=== PATIENT | female | born 1990 | race Caucasian/White ===

== ENCOUNTER 2023-06-03 09:22 | Outpatient (CLI) | payer OTHER, SELFPAY | END 2023-06-03 09:23 | disposition home or self-care (01) | LOC: FRMREF 09:23 | PROVIDERS: PCP Family Medicine; Visit Provider Family Medicine | DX: Z00.00 Encounter for general adult medical examination without abnormal findings (principal); Z83.3 Family history of diabetes mellitus | CPT/HCPCS: 80053 ==

== ENCOUNTER 2023-07-08 14:45 | Outpatient (RCR) | payer OTHER, SELFPAY | END 2023-08-12 11:09 | disposition home or self-care (01) | PROVIDERS: PCP Family Medicine; Visit Provider Family Medicine | DX: M25.561 Pain in right knee (principal); G89.29 Other chronic pain; Z51.89 Encounter for other specified aftercare | CPT/HCPCS: 97110; 97140; 97161 ==

== ENCOUNTER 2024-09-14 18:23 | Outpatient (CLI) | payer OTHER, SELFPAY | END 2024-09-14 18:24 | disposition home or self-care (01) | PROVIDERS: PCP Family Medicine; Visit Provider Advanced Practice Midwife | DX: Z34.91 Encounter for supervision of normal pregnancy, unspecified, first trimester (principal); Z3A.09 9 weeks gestation of pregnancy | CPT/HCPCS: 76817; 82565; 82570; 84156; 84450; 84460; 84520; 84550; 86592; 86703; 86704; 86706; 86762; 86787; 86803; 86850; 86900; 86901; 87086; 87340 ==

== ENCOUNTER 2024-09-20 13:11 | Outpatient (CLI) | payer OTHER, SELFPAY | END 2024-09-20 13:12 | disposition home or self-care (01) | LOC: NFLDREF 13:12 | PROVIDERS: PCP Family Medicine; Visit Provider Advanced Practice Midwife | DX: O09.299 Supervision of pregnancy with other poor reproductive or obstetric history, unspecified trimester (principal) | CPT/HCPCS: 82570; 84156 ==

== ENCOUNTER 2024-10-11 16:58 | Outpatient (CLI) | payer OTHER, SELFPAY | END 2024-10-11 16:59 | disposition home or self-care (01) | PROVIDERS: PCP Family Medicine; Visit Provider Obstetrics & Gynecology | DX: Z34.91 Encounter for supervision of normal pregnancy, unspecified, first trimester (principal); Z3A.12 12 weeks gestation of pregnancy | CPT/HCPCS: 80076; 82565; 82570; 84156; 84520 ==

== ENCOUNTER 2024-12-09 13:46 | Outpatient (CLI) | payer OTHER, SELFPAY | END 2024-12-09 13:47 | disposition home or self-care (01) | LOC: US 13:47 | PROVIDERS: PCP Family Medicine; Visit Provider Obstetrics & Gynecology | DX: O09.522 Supervision of elderly multigravida, second trimester (principal); O10.912 Unspecified pre-existing hypertension complicating pregnancy, second trimester; Z3A.20 20 weeks gestation of pregnancy | CPT/HCPCS: 76811; 82570; 84156; 87086 ==

== ENCOUNTER 2025-01-05 14:47 | Outpatient (CLI) | payer OTHER, SELFPAY | END 2025-01-05 14:48 | disposition home or self-care (01) | LOC: US 14:48 | PROVIDERS: PCP Family Medicine; Visit Provider Obstetrics & Gynecology | DX: O09.522 Supervision of elderly multigravida, second trimester (principal); O10.912 Unspecified pre-existing hypertension complicating pregnancy, second trimester; O14.92 Unspecified pre-eclampsia, second trimester; Z3A.24 24 weeks gestation of pregnancy | CPT/HCPCS: 76816 ==

== ENCOUNTER 2025-02-01 13:49 | Outpatient (CLI) | payer OTHER, SELFPAY | END 2025-02-01 13:50 | disposition home or self-care (01) | LOC: NFLDREF 02-04 02:43 | PROVIDERS: PCP Family Medicine; Referring Provider Family Medicine; Visit Provider Obstetrics & Gynecology | DX: Z34.93 Encounter for supervision of normal pregnancy, unspecified, third trimester (principal); Z3A.28 28 weeks gestation of pregnancy | CPT/HCPCS: 86592 ==

== ENCOUNTER 2025-02-01 13:50 | Outpatient (CLI) | payer OTHER, SELFPAY ==
--- NOTE | 2025-02-01 14:00 | CRLHL7_ITS ---
For Patients: As a result of the Century Cures Act, medical imaging exams and procedure reports are released immediately into your electronic medical record. You may view this report before your referring provider. If you have questions, please contact your health care provider. OBSTETRICAL ULTRASOUND ??? FOLLOW-UP, 02/01/2025 INDICATION: Obesity. 2, para 1. CLINICAL HISTORY: ALEX by US: 04/26/2025 Gestational Age: 28 weeks 0 days Surgery: No COMPARISON: 12/09/2024 TECHNIQUE: Real-time chang-scale imaging of the fetus was performed transabdominal. FINDINGS: Fetus: Single Cervix: Not visualized positioning: Breech Amniotic fluid: 6.1 SDP Placenta technique: Transabdominal Placenta position: Anterior heart rate: 165 bpm BIOMETRY: BPD: 7.6 cm, 30 weeks 2 days, 95% HC: 28.2 cm, 30 weeks 6 days, 94% AC: 26.1 cm, 30 weeks 1 day, 94% FL: 5.3 cm, 28 weeks 0 days, 36% FL/AC Ratio: 20.22% HC/AC ratio: 1.08 EFW: 1418 grams; 3 lbs. 2 oz. age by this ultrasound: 29 weeks 6 days ALEX by this ultrasound: 04/13/2025 Percentile by ALEX: 91% IMPRESSION: 1. Sonographic gestational age is 29 weeks 6 days and sonographic due date is 04/13/2025. Sonographic age is 13 days ahead of the clinical age. 2. Estimated weight is 91st percentile. Abdominal circumference is 94th percentile. ROMULO ENNIS M.D. Diagnostic Radiologist [email or web address] Transcribed: 4:[address]/Dictated by: Romulo Ennis MD @ 02/01/2025 2:55:00 PM (Electronically Signed)
== END 2025-02-01 13:51 | disposition home or self-care (01) ==
LOC: US 13:50
PROVIDERS: PCP Family Medicine; Visit Provider Obstetrics & Gynecology
DX: O99.213 Obesity complicating pregnancy, third trimester (principal); Z3A.28 28 weeks gestation of pregnancy
CPT/HCPCS: 76816

== ENCOUNTER 2025-02-19 13:00 | Outpatient (CLI) | payer OTHER, SELFPAY ==
[2025-02-19 13:18] VITALS: PULSE 88; O2SAT 99
[2025-02-19 13:23] LABS: Hematocrit 38.1 % (33.0-51.0); Hemoglobin* 12.9 gm/dL (12.0-16.0); Mean Corpuscular HGB Conc 34 gm/dL (32-36); Mean Corpuscular Hemoglobin 32 pg (26-34); Mean Corpuscular Volume 96 fL (80-100); Platelet Count* 370 K/uL (140-440); Red Blood Count 3.98 m/uL (4.00-5.20)
[2025-02-19 13:26] LABS: Slide Review Reflex No
[2025-02-19 13:33] VITALS: BP 132/73; PULSE 82
[2025-02-19 13:47] VITALS: BP 122/67; PULSE 81
[2025-02-19 13:50] LABS: Alanine Aminotransferase* 40 U/L (4-35); Aspartate Amino Transferase* 36 U/L (12-35); Blood Urea Nitrogen* 8 mg/dL (5-24); Creatinine* 0.5 mg/dL (0.5-1.5); Estimated Glomerular Filt Rate 125 ml/min
[2025-02-19 13:50] LABS: Total Protein Urine 14 mg/dL
[2025-02-19 13:51] LABS: Creatinine Urine 14.1 mg/dL; Protein Creatinine Ratio Urine 0.99 (0-0.19)
[2025-02-19 14:02] VITALS: BP 125/70; PULSE 85
--- NOTE | 2025-02-19 14:41 | PC.OBNST ---
NST Note NST Note Start: 02/19/25 13:08 Freq: ONCE Status: Active Protocol: Document 02/19/25 14:39 [facility] (Rec: 02/19/25 14:41 [facility] Desktop) NST Note 2 Para (# of births) 1 EDC 04/26/25 Gestational Age In Weeks & Days 30 Weeks & 4 Days Patient Presented with Complaint(s) of Other Other Complaints Dizziness and vision changes at home. Previous pre-e diagnosis. Reactive Yes Appropriate for Gestational Age Yes RADHA Gonzalez, RADHA Date 02/19/25 Reactive Yes Appropriate for Gestational Age Yes RADHA Powers RN Date 02/19/25 OB NST charge Yes Complete NST Note via Write Note Yes The provider's electronic signature indicates the NST is reactive/appropriate for gestational age. *Note to provider: If an addendum is required, open the patient's chart and click on the note under the Nurse/Allied Health tab.
== END 2025-02-19 14:37 | disposition home or self-care (01) ==
LOC: OB OUT 13:01 → OB 13:03
PROVIDERS: PCP Family Medicine; Visit Provider Obstetrics & Gynecology
DX: O26.893 Other specified pregnancy related conditions, third trimester (principal); R42 Dizziness and giddiness; H53.9 Unspecified visual disturbance; Z3A.30 30 weeks gestation of pregnancy
CPT/HCPCS: 36415; 59025; 82565; 82570; 84156; 84450; 84460; 84520; 85027; G0463

== ENCOUNTER 2025-02-22 10:44 | Outpatient (CLI) | payer OTHER, SELFPAY | END 2025-02-22 10:45 | disposition home or self-care (01) | PROVIDERS: PCP Family Medicine; Visit Provider Obstetrics & Gynecology | DX: O10.913 Unspecified pre-existing hypertension complicating pregnancy, third trimester (principal); Z3A.31 31 weeks gestation of pregnancy; R74.01 Elevation of levels of liver transaminase levels | CPT/HCPCS: 80074; 82565; 82570; 84156; 84450; 84460; 84520 ==

== ENCOUNTER 2025-03-01 13:36 | Outpatient (CLI) | payer OTHER, SELFPAY ==
--- NOTE | 2025-03-01 13:45 | CRLHL7_ITS ---
For Patients: As a result of the Century Cures Act, medical imaging exams and procedure reports are released immediately into your electronic medical record. You may view this report before your referring provider. If you have questions, please contact your health care provider. INDICATION: Elevated liver enzymes COMPARISON: none TECHNIQUE: Real time chang scale imaging and color Doppler analysis was performed of the right upper quadrant. FINDINGS: The patient`s liver measures 18.4 cm and has uniform echogenicity. There is a normal appearance of the hepatic IVC and proximal abdominal aorta. There is no evidence of ascites. The gallbladder is of normal size and there is mild layering sludge present. The gallbladder wall measures 3.3 mm in thickness. The common bile duct is of normal size and measures 3.1 mm in diameter at the level of the marta hepatis. The pancreas is not well visualized. There is no evidence of a stone or hydronephrosis within the right kidney. The right kidney measures 12.3 cm in length. IMPRESSION: Mild layering sludge in the gallbladder. No biliary obstruction. Dictated by Romulo Garcia MD @ 03/01/2025 3:30:42 PM (Electronically Signed)
--- NOTE | 2025-03-01 14:15 | CRLHL7_ITS ---
For Patients: As a result of the Cures Act, medical imaging exams and procedure reports are released immediately into your electronic medical record. You may view this report before your referring provider. If you have questions, please contact your health care provider. OB ULTRASOUND ALEX by US: 04/26/2025. GA: 32 w, 0 d. Single. Surgery: No. Comparison: 02/01/2025, 01/05/2025, 12/09/2024. INDICATION: Obesity. TECHNIQUE: Real time grayscale imaging of the fetus was performed. Transabdominal. CERVIX: Not visualized. POSITIONING: Vertex. AMNIOTIC FLUID: 6.4 cm. SDP (N: greater than 2 x 1 cm) PLACENTA: Technique: Transabdominal. PLACENTA POSITION: Anterior. DOPPLER: heart rate: 129 bpm. BIOMETRY: BPD: 9.0 cm. 36 w, 2 d, >97 percent. HC: 32.0 cm. 36 w, 0 d, >97 percent. AC: 31.3 cm. 35 w, 2 d, >97 percent. FL: 6.3 cm. 32 w, 5 d, 56 percent. FL/AC ratio: 20.17 percent. HC/AC ratio: 1.02. EFW: 2507 g. Weight: 5 lbs, 8 oz. age by this US: 35 w, 1 d. ALEX by this US: 04/04/2025. Percentile by ALEX: >97 percent. IMPRESSION: 1. Sonographic gestational age 35 weeks 1 day and sonographic due date 04/04/2025. Sonographic age is 22 days ahead of the clinical age. 2. Estimated weight greater than 97th percentile. BPD, HC, and AC greater than 97th percentile. Romulo Garcia M.D. Diagnostic Radiologist [email or web address] ANNE/lavelle valderrama/Dictated by: Romulo Garcia MD @ 03/01/2025 3:31:00 PM (Electronically Signed)
== END 2025-03-01 13:37 | disposition home or self-care (01) ==
LOC: US 13:36
PROVIDERS: PCP Family Medicine; Visit Provider Obstetrics & Gynecology
DX: O99.213 Obesity complicating pregnancy, third trimester (principal); Z3A.32 32 weeks gestation of pregnancy
CPT/HCPCS: 76705; 76816; 82565; 82570; 84156; 84450; 84460; 84520

== ENCOUNTER 2025-03-30 14:07 | Outpatient (CLI) | payer OTHER, SELFPAY ==
--- NOTE | 2025-03-30 14:15 | CRLHL7_ITS ---
For Patients: As a result of the Cures Act, medical imaging exams and procedure reports are released immediately into your electronic medical record. You may view this report before your referring provider. If you have questions, please contact your health care provider. OB ULTRASOUND ALEX by US: 04/26/2025. GA: 36 w, 1 d. Single. Comparison: 03/01/2025, 02/01/2025, 01/05/2025. INDICATION: Obesity. TECHNIQUE: Real time grayscale imaging of the fetus was performed. Transabdominal. CERVIX: Not visualized. POSITIONING: Vertex. AMNIOTIC FLUID: 5.8 cm. SDP (N: greater than 2 x 1 cm) PLACENTA: Technique: Transabdominal. PLACENTA POSITION: Anterior. DOPPLER: heart rate: 161 bpm. BIOMETRY: BPD: 9.6 cm. 39 w, 0 d, >97 percent. HC: 36.1 cm. -- w, -- d, >97 percent. AC: 37.5 cm. 41 w, 3 d, >97 percent. FL: 7.1 cm. 36 w, 3 d, 52.4 percent. FL/AC ratio: 18.94 percent. HC/AC ratio: 0.96. EFW: 4041 g. Weight: 8 lbs, 15 oz. age by this US: 39 w, 0 d. ALEX by this US: 04/06/2025. Percentile by ALEX: >97 percent. IMPRESSION: 1. Sonographic gestational age 39 weeks 0 days and sonographic due date 04/06/2025. Sonographic age is 20 days ahead of the clinical age. 2. Estimated weight greater than 97th percentile. Abdominal circumference, head circumference, and BPD are all greater than 97th percentile. Romulo Garcia M.D. Diagnostic Radiologist [email or web address] ANNE/lavelle valderrama/Dictated by: Romulo Garcia MD @ 03/30/2025 3:15:00 PM (Electronically Signed)
== END 2025-03-30 14:08 | disposition home or self-care (01) ==
LOC: US 14:08
PROVIDERS: PCP Family Medicine; Visit Provider Obstetrics & Gynecology
DX: O99.213 Obesity complicating pregnancy, third trimester (principal); O36.63X0 Maternal care for excessive fetal growth, third trimester, not applicable or unspecified; Z3A.36 36 weeks gestation of pregnancy
CPT/HCPCS: 76816; 82565; 84450; 84460; 84520

== ENCOUNTER 2025-03-30 15:48 | Outpatient (CLI) | payer OTHER, SELFPAY | END 2025-03-30 15:49 | disposition home or self-care (01) | PROVIDERS: PCP Family Medicine; Visit Provider Obstetrics & Gynecology | DX: Z34.83 Encounter for supervision of other normal pregnancy, third trimester (principal) | CPT/HCPCS: 82565; 84450; 84460; 84520; 87081; 87653 ==

== ENCOUNTER 2025-04-05 14:08 | Outpatient (CLI) | payer OTHER, SELFPAY ==
--- NOTE | 2025-04-05 14:15 | CRLHL7_ITS ---
For Patients: As a result of the Cures Act, medical imaging exams and procedure reports are released immediately into your electronic medical record. You may view this report before your referring provider. If you have questions, please contact your health care provider. OB ULTRASOUND BIOPHYSICAL PROFILE TRANSABDOMINAL ALEX by US: 04/26/2025. GA: 37 w, 0 d. Single. Comparison: 03/30/2025, 03/01/2025, 02/01/2025. INDICATION: Pre-existing hypertension. TECHNIQUE: Real time chang scale imaging of the fetus was performed. Transabdominal imaging performed. CERVIX: Not visualized. POSITIONING: Vertex. AMNIOTIC FLUID: 5.6 cm SDP (N: greater than 2 x 1 cm) BIOPHYSICAL PROFILE: Gross body movements: 2. tone: 2. Respiratory activity: 2. Amniotic fluid: 2. SDP (N: greater than 2 x 1 cm). Total score: 8. PLACENTA: Technique: Transabdominal. PLACENTA POSITION: Anterior. DOPPLER: heart rate: 183 bpm. IMPRESSION: Normal biophysical profile 06/24. Romulo Garcia M.D. Diagnostic Radiologist [email or web address] SP/Dictated by: Romulo Garcia MD @ 04/05/2025 4:08:00 PM (Electronically Signed)
== END 2025-04-05 14:09 | disposition home or self-care (01) ==
LOC: US 14:09
PROVIDERS: PCP Family Medicine; Visit Provider Obstetrics & Gynecology
DX: O10.913 Unspecified pre-existing hypertension complicating pregnancy, third trimester (principal); Z3A.37 37 weeks gestation of pregnancy
CPT/HCPCS: 76819

== ENCOUNTER 2025-04-05 15:17 | Outpatient (CLI) | payer OTHER, SELFPAY ==
[2025-04-05 15:27] VITALS: PULSE 109; O2SAT 99
[2025-04-05 15:32] VITALS: PULSE 98; O2SAT 98
[2025-04-05 15:33] VITALS: BP 131/80; PULSE 92
[2025-04-05 15:49] LABS: Hematocrit 36.9 % (33.0-51.0); Hemoglobin* 12.8 gm/dL (12.0-16.0); Mean Corpuscular HGB Conc 35 gm/dL (32-36); Mean Corpuscular Hemoglobin 33 pg (26-34); Mean Corpuscular Volume 94 fL (80-100); Platelet Count* 342 K/uL (140-440); Red Blood Count 3.94 m/uL (4.00-5.20)
[2025-04-05 15:51] LABS: Slide Review Reflex No
[2025-04-05 15:56] VITALS: BP 128/74; PULSE 88
[2025-04-05 16:06] VITALS: BP 122/71; PULSE 96
[2025-04-05 16:11] LABS: Alanine Aminotransferase* 29 U/L (4-35); Aspartate Amino Transferase* 31 U/L (12-35); Blood Urea Nitrogen* 10 mg/dL (5-24); Creatinine* 0.5 mg/dL (0.5-1.5); Estimated Glomerular Filt Rate 125 ml/min
--- NOTE | 2025-04-05 17:50 | PC.OBNST ---
NST Note NST Note Start: 04/05/25 15:20 Freq: ONCE Status: Active Protocol: Document 04/05/25 17:47 [facility] (Rec: 04/05/25 17:49 [facility] Desktop) NST Note 2 Para (# of births) 1 EDC 04/26/25 Gestational Age In 37 Weeks & 0 Days Weeks & Days High Risk Factors High Blood Pressure - Gestational Other Complaints Elevated blood pressures Reactive Yes Appropriate for Yes Gestational Age RADHA Wan RN Date 04/05/25 Reactive Yes Appropriate for Yes Gestational Age RADHA Belle MD Date 04/05/25 OB NST charge Yes Complete NST Note Yes via Write Note The provider's electronic signature indicates the NST is reactive/appropriate for gestational age. *Note to provider: If an addendum is required, open the patient's chart and click on the note under the Nurse/Allied Health tab.
== END 2025-04-05 17:40 | disposition home or self-care (01) ==
LOC: OB OUT 15:18 → OB 15:18
PROVIDERS: PCP Family Medicine; Visit Provider Obstetrics & Gynecology
DX: O13.3 Gestational [pregnancy-induced] hypertension without significant proteinuria, third trimester (principal); Z3A.37 37 weeks gestation of pregnancy
CPT/HCPCS: 36415; 59025; 82565; 84450; 84460; 84520; 85027; G0463

== ENCOUNTER 2025-04-12 16:25 | Inpatient (IN) | payer OTHER, SELFPAY ==
[2025-04-12] VITALS (9 sets, daily range): BP systolic 107–134; BP diastolic 53–90; PULSE 76–96; TEMP 36.5–37.1; O2SAT 97; BMI 37.3
[2025-04-12 17:36] LABS: Basophils Percent Auto 0.1 % (0.0-3.0); Eosinophils Percent Auto 0.5 % (0.0-7.0); Hematocrit 35.9 % (33.0-51.0); Hemoglobin* 12.3 gm/dL (12.0-16.0); Immature Granulocytes Pct Auto 0.7 %; Lymphocytes Percent Auto 15.6 % (20-44); Mean Corpuscular HGB Conc 34 gm/dL (32-36); Mean Corpuscular Hemoglobin 33 pg (26-34); Mean Corpuscular Volume 95 fL (80-100); Monocytes Percent Auto 4.9 % (0.0-11.0); Neutrophils Percent Auto 78.2 % (42.0-72.0); Platelet Count* 340 K/uL (140-440); RDW Coefficient of Variation % 12.6 % (11.5-15.5); Red Blood Count 3.78 m/uL (4.00-5.20); Slide Review Reflex No; White Blood Count* 12.94 K/uL (4.50-11.00)
[2025-04-12] MEDS: CALCIUM CARBONATE 500 MG CHEW PO (17:51)
[2025-04-12 18:56] LABS: Blood Urea Nitrogen* 12 mg/dL (5-24); Creatinine* 0.7 mg/dL (0.5-1.5); Est. Creatinine Clearance* 113.16; Estimated Glomerular Filt Rate 116 ml/min
[2025-04-12 18:57] LABS: Alanine Aminotransferase* 34 U/L (4-35); Aspartate Amino Transferase* 37 U/L (12-35)
--- NOTE | 2025-04-12 19:45 | P.LDBA_ITS ---
Subjective History of Present Illness Narrative: Patient is being admitted to Labor and Delivery for chronic hypertension complicating . She is a 34 year old -0-0-1 woman at 38 weeks, 0 days gestation. Her full history and physical was dictated by Dr. Oneill on 04/05/2025. Please see this for details. Specific Issues/Plans ?? Partner: Frank? Daughter: Gal Guadarrama Baby: Girl! Evelin Wilkinson H&P:?CGM on 04/05/25 #CHTN-No meds Baseline labs at NOB, elevated AST/ALT; normal upon repeat Daily baby aspirin recommended. Referral for level II US: see below Monthly US for growth beginning 28 weeks. #Proteinuria Baseline 24 urine 400 mg / 24 hours 12/09/24 2nd 24hr urine: 675mg Repeat 24 hr urine 03/01: 728 mg [ ] 24 hour urine Referral to nephrology: plans repeat 24hour urine collection Q trimester and . Blood pressure log recommended. #History of preeclampsia during first # AMA age 34? * Dewy Rose: low risk aneuploidy, negative carrier screen. Girl. * 20 wk level II US? #? BMI 37 * Weekly BPP beginning 37 weeks # Suspected LGA fetus * Monthly US for growth beginning 28 weeks (ordered on 12/14/24). * 28 weeks: EFW 91%, 32 wks EFW >97%. * 36 weeks: EFW 4041 g, >97%, AC>97% * 1 hr GTT 02/01/25: 128 * IOL at 39 weeks #Dizzy/lightheaded with pre-syncope sx reported at 02/14 - Recommend Zio patch x3d - clarifying pricing with billing and pt insurance per pt preference # Transaminitis noted at 31 weeks (02/19/25): L&D with a Headache. Normal on 03/01/25: AST 30, ALT 34. 02/19/25: ALT 40, AST 36. 02/22/25: ALT 46, AST 37. 03/01/25: ALT 34, AST 30 Normotensive, normal platelets, no evidence of hemolysis: no evidence of HELLP or preeclampsia. Acute hepatitis panel: Normal/negative. RUQ US 03/01/25: Sludge/debris in the gallbladder. No gallbladder wall thickening, no stones. Liver normal. # GBS positive. Ampicillin during labor. Imaging:??? 12/09/2024: Level 2 ultrasound. 20 weeks, 2 days. Anterior placenta without previa. Three-vessel cord. MVP 4.5 cm. EFW >97%, AC 94%, suboptimal 4-chamber view, RVOT View, LVOT View, Situs, Aortic Arch view, Bicaval view, Ductal Arch view, Superior Vena Cava, Inferior Vena Cava, 3-vessel view or 0-[id number] view. Otherwise normal anatomy. Follow up with MFM in 4 weeks. 01/06: 24w 1d. Cephalic, normal cardiac images. MVP 6.2, EFW > 97%, AC 82.4%. 02/01/25: 28 weeks. Breech, SDP 6.1 cm, EFW 91%, BPD 95%, HC 94%, AC 94%, FL 36%. 03/01/25 32wks: Vtx, SDP 6.4 cm. EFW 2507 g, 5 lb 8 oz > 97%. BPD > 97%, HC > 97%, AC > 97%, FL 56%. 03/30/25: cephalic, SDP 5.8 cm, EFW 4041 g, >97%. AC >97%. BPD and HC >97%. FL 52.4%. Vaccinations:?? COVID: 08/28/2023 booster Flu: 09/07/2024? Tdap: 02/14/25 32 week mental health: PHQ-9: 3; RYAN-7: 5. ? Last pap:? 12/24/22 NIL, neg HPV? OB - Problem Based A/P Additional Plan (1) Proteinuria affecting : Status: Acute (2) Chronic hypertension complicating or reason for care during : Status: Acute (3) : Status: Acute Plan Using aseptic technique, Cook catheter placed into the lower uterine segment. Intra uterine an intracervical balloons were inflated to 60 mL of saline. Patient tolerated procedure well. We will begin Pitocin at low dose at 12:30 a.m.. Begin ampicillin for GBS positive status at that time. Continues monitoring while using Pitocin. Delivery/Labor/Induction Plan Induction method: Intracervical balloon catheter OB Exam Physical Exam Vital signs: Temp Pulse BP Pulse Ox 98 F 88 125/68 97 04/12/25 17:03 04/12/25 19:36 04/12/25 19:36 04/12/25 17:02 Narrative: Physical exam: General: No acute distress Psych: Alert and oriented x3, full affect HEENT: Normocephalic, atraumatic Heart: Regular rate and rhythm, no murmur rub or gallop Lungs: Clear to auscultation bilaterally Abdomen: Soft, nontender, gravid, cephalic lie Lower extremities: No edema or erythema Pelvic exam: 1 cm, 40% effaced,-3 station, mid position, firm tracing: Baseline 140 / accelerations present / no decelerations / moderate variability Occasional contractions
[2025-04-12] MEDS: MORPHINE 10 MG/ML inj IM (22:10)
[2025-04-12] MEDS: hydrOXYzine pamoate 25 MG CAPSULE 100 MG PO (22:11)
[2025-04-13] VITALS (53 sets, daily range): BP systolic 107–154; BP diastolic 56–98; PULSE 72–111; RESP 16–18; TEMP 36.4–37.4; O2SAT 98–100
[2025-04-13] MEDS: LACTATED RINGERS 1000 ML 1,000 ML 125 ML IV (06:05)
[2025-04-13] MEDS: OXYTOCIN 30 unit/500 ML in NS 30 UNIT/500 ML BAG IVPB (06:06)
[2025-04-13] MEDS: AMPICILLIN 2 GM in 0.9 % SODIUM CHLORIDE Mini-bag 100 ML IVPB (06:06)
[2025-04-13] MEDS: CALCIUM CARBONATE 500 MG CHEW PO ×4 (07:59→21:47)
[2025-04-13] MEDS: AMPICILLIN 1 GM in 0.9 % SODIUM CHLORIDE Mini-bag 100 ML IVPB ×3 (09:59→18:07)
--- NOTE | 2025-04-13 11:25 | PM.OBPNL ---
Subjective Time Seen by Provider: 11: Date Seen: 04/13/25 Objective Vital Signs: Last Vital Signs Temp 98.2 F 04/13/25 09:03 Pulse 85 04/13/25 09:03 Resp 16 04/13/25 06:02 BP 129/77 04/13/25 09:03 Pulse Ox 97 04/12/25 17:02 Pelvic Exam Dilation (cm): 4 Effacement (%): 50 Station: -3 Comments: Patient tolerating labor well. Consented to AROM. Clear fluid. Contractions Monitor mode: External Pitocin Rate (mU/min): 10 Plan Plan: - Will continue titrating Pitocin - Ok to get epidural per patient's preferrence
[2025-04-13] MEDS: ROPIVACAINE 0.2% 100 ml 100 ML 12 MG EPIDURAL (12:50)
[2025-04-13] MEDS: LIDOCAINE 2% (PF) 5 ML VIAL EPIDURAL (12:51)
[2025-04-13] MEDS: LACTATED RINGERS 1000 ML 1,000 ML 923 ML IV (13:14)
--- NOTE | 2025-04-13 13:15 | PM.ANBPRC ---
[facility] Medical History Vaginal delivery ?O80 - Encounter for full-term uncomplicated delivery (ICD-10) Right shoulder pain ?M25.511 - Pain in right shoulder (ICD-10) Plantar fasciitis ?M72.2 - Plantar fascial fibromatosis (ICD-10) Family history of myocardial infarction ?Z82.49 - Family history of ischemic heart disease and other diseases of the circulatory system (ICD-10) Family history of diabetes mellitus (DM) ?Z83.3 - Family history of diabetes mellitus (ICD-10) Preeclampsia ?O14.90 - Unspecified pre-eclampsia, unspecified trimester (ICD-10) Family History Mother Diabetes Father High blood pressure Myocardial infarction, Onset Age: 65 Brother Myocardial infarction, Onset Age: 24 Paternal Grandfather Myocardial infarction, Onset Age: 48 Paternal Grandmother Cervical cancer Maternal Grandfather COPD (chronic obstructive pulmonary disease) Social History What is your current living situation?: I presently have a place to live Problems where you live: no known problems In the past 12 months, utilities in danger of being shut off: no In past 12 months, lack of transportation kept you from medical appts, meetings, work, or getting things needed for daily living: no In the past 12 mos, have been you worried that your food would run out before you had money to buy more?: never true In the past 12 mos, the food you bought just didn't last and you didn't have money to buy more?: never true Smoking Status: Never smoker How often does anyone, including family, friends and others, physically hurt you: never How often does anyone, including family, friends and others, insult or talk down to you: never How often does anyone, including family, friends and others, threaten you with harm: never How often does anyone, including family, friends and others, scream or curse at you: never Meds Home Medications and Allergies Home Medications ?Medication ?Instructions ?Recorded ?Confirmed ?Type acetaminophen 500 mg oral powder 500 mg PO Q6H PRN 09/14/24 04/05/25 History packet (Tylenol Extra Strength) fluticasone propionate 50 1 spray intranasal QDAY 09/14/24 04/12/25 History mcg/actuation nasal spray,suspension vit 168-iron 27 mg-folic cap PO 09/14/24 04/05/25 History acid 800 mcg-omega3 235 mg capsule (One-A-Day -1) doxylamine succinate 25 mg tablet 25 mg PO QHS PRN 10/11/24 04/12/25 History (Unisom (doxylamine)) aspirin 81 mg tablet,delayed 81 mg PO QDAY 11/08/24 04/12/25 History release (Adult Aspirin Regimen) pediatric multivitamin no.19-folic tab PO 12/13/24 04/05/25 History acid 200 mcg chewable tablet (Flintstones Multi-Vitamins Gummies) promethazine 25 mg tablet 25 mg PO QID PRN nausea and 01/10/25 04/12/25 Rx vomiting #30 tabs magnesium 200 mg tablet 360 mg PO QDAY 03/01/25 04/12/25 History famotidine 20 mg tablet (Pepcid) 20 mg PO QDAY 03/15/25 04/12/25 History Allergies Allergy/AdvReac Type Severity Reaction Status Date / Time aspartame Allergy Severe Verified 04/05/25 14:57 Results Labs Labs: Laboratory Results - last 24 hr 04/12/25 17:30 WBC 12.94 H RBC 3.78 L Hgb 12.3 Hct 35.9 MCV 95 MCH 33 MCHC 34 RDW Coeff of Garett 12.6 Plt Count 340 Neut % (Auto) 78.2 H Lymph % (Auto) 15.6 L Glynn % (Auto) 4.9 Eos % (Auto) 0.5 Baso % (Auto) 0.1 Neut # (Auto) 10.10 H Lymph # (Auto) 2.00 Glynn # (Auto) 0.60 Eos # (Auto) 0.10 Baso # (Auto) 0.00 Abs Immat Gran (auto) 0.10 Imm/Tot Granulo (auto) 0.7 BUN 12 Creatinine 0.7 Estimated Creat Clear 113.16 Estimated GFR 116 AST 37 H ALT 34 Blood Type B Positive Antibody Screen NEGATIVE Vital Signs Vital Signs: Last Vital Signs Temp 98.2 F 04/13/25 09:03 Pulse 83 04/13/25 13:11 Resp 16 04/13/25 06:02 BP 121/69 04/13/25 13:11 Pulse Ox 97 04/12/25 17:02 Weight: 111.312 kg Height: 172.72 cm Anesthesia Procedures Epidural Insertion Patient Location: OB Start Time: 12:45 Stop Time: 13:15 Start Date: 04/13/25 Stop Date: 04/13/25 Reason for Block: primary anesthetic Patient Position: sitting Performed By: Mynor Berrios Preanesthetic Checklist: IV checked, risks and benefits discussed, surgical consent, monitors and equipment checked, pre-op evaluation, timeout performed and anesthesia consent Prep: chlorhexidine gluconate Monitoring: blood pressure monitoring, school lunch monitor, continuous pulse oximetry and heart rate Approach: midline Vertebral Space: lumbar (1-5) Needle Type: Tuohy needle Injection Technique: continuous catheter (catheter) Needle gauge: 17 Needle Length (cm): 10 cm Needle Insertion Depth (cm): 6 Catheter Gauge: 19 Catheter Type: multi-orifice Catheter at skin depth (cm): 11 Test Dose Result: negative and lidocaine 1.5% with epinephrine 1 to 200,000
[2025-04-13] MEDS: PHENYLEPHRINE 100 MCG/ML SYRINGE IVP ×2 (15:18→15:49)
[2025-04-13] MEDS: LACTATED RINGERS 1000 ML 1,000 ML 925 ML IV (16:15)
[2025-04-13] MEDS: fentaNYL 100 MCG/2 ML inj 50 MCG EPIDURAL (17:07)
[2025-04-13] MEDS: LIDOCAINE 2% (PF) 5 ML VIAL 2 ML EPIDURAL (17:08)
--- NOTE | 2025-04-13 19:21 | W.PM.VAGDEL1 ---
Procedure Delivery date: 04/13/25 Procedure Done: Global Events: Chronic Hypertension and Labor Induction Intrapartal Events: Labor Induction Delivery monitor: external FHT Route of delivery: Episiotomy description: None Delivery repair: Vicryl Anesthesia type: Epidural Narrative: The patient is a 34 year-old admitted on 04/12/25 at 38 and 0/7 weeks gestation due to chronic hypertension on no medication. GBS positive. Received ampicillin intrapartum. Labor Analgesia: Epidural. Pitocin: for labor induction and 3rd stage management AROM: 04/13/25 at 1114, with clear fluid Labor onset: 04/13/25 at 1400 Complete: 04/13/25 at 1820 Pushin04/13/25 at 1830 heart tones during second stage were II due to tachycardia and rare late deceleration. Moderate variability with multiple accelerations. At 1836 a viable female delivered in vertex OA presentation over intact via spontaneous vaginal delivery. The 's body was delivered in the usual manner without difficulty. The was placed on maternal abdomen. The cord was clamped and cut after a 30-60 second delay. The nose and mouth were bulb suctioned. weight: pending. 9 at 1 minute and 9 at 5 minutes. Shoulder dystocia: No . Nuchal cord: No Placenta delivered spontaneously and complete at 1639 with a 3-vessel cord. Placenta examined and noted to be complete. Placenta was sent to pathology due to CHTN. The cervix and vagina were inspected for lacerations, and superficial bilateral ureteral laceration and 1 cm 1st degree perineal were noted. Laceration(s): 1 figure of 8 placed on right periurethral laceration with 2-0 vicryl. Complications: none Quantitative blood loss: 50 cc Cord gases: not indicated Sponge and needles counts are correct. Mother and were stable at the time of this note.
[2025-04-13] MEDS: ACETAMINOPHEN 500 MG TABLET 1000 MG PO (19:23)
[2025-04-13 20:33] LABS: Hematocrit 37.2 % (33.0-51.0); Hemoglobin* 12.9 gm/dL (12.0-16.0); Mean Corpuscular HGB Conc 35 gm/dL (32-36); Mean Corpuscular Hemoglobin 33 pg (26-34); Mean Corpuscular Volume 94 fL (80-100); Platelet Count* 347 K/uL (140-440); Red Blood Count 3.95 m/uL (4.00-5.20); White Blood Count* 23.34 K/uL (4.50-11.00)
[2025-04-13 20:34] LABS: Slide Review Reflex No
[2025-04-13 20:50] LABS: Blood Urea Nitrogen* 11 mg/dL (5-24); Creatinine* 0.6 mg/dL (0.5-1.5); Est. Creatinine Clearance* 132.02; Estimated Glomerular Filt Rate 120 ml/min
[2025-04-13 20:51] LABS: Alanine Aminotransferase* 37 U/L (4-35); Aspartate Amino Transferase* 37 U/L (12-35)
[2025-04-13] MEDS: NIFEdipine ER 30 MG TAB PO (21:46)
[2025-04-13] MEDS: IBUPROFEN 600 MG TABLET PO (23:09)
[2025-04-14 02:58] VITALS: BP 118/77; PULSE 84; RESP 16; TEMP 36.9
[2025-04-14] MEDS: ACETAMINOPHEN 500 MG TABLET 1000 MG PO ×3 (02:58→16:33)
[2025-04-14] MEDS: IBUPROFEN 600 MG TABLET PO ×3 (05:34→20:28)
[2025-04-14] MEDS: CALCIUM CARBONATE 500 MG CHEW PO ×2 (06:21→17:21)
[2025-04-14 06:34] LABS: Hemoglobin* 12.5 gm/dL (12.0-16.0)
[2025-04-14 08:35] VITALS: BP 109/74; PULSE 88; RESP 24; TEMP 36.4; O2SAT 97
[2025-04-14] MEDS: DOCUSATE SODIUM 100 MG CAPSULE PO (08:52)
[2025-04-14 11:59] VITALS: BP 119/78; PULSE 83; RESP 20; TEMP 36.6; O2SAT 97
--- NOTE | 2025-04-14 12:56 | PM.ANPOST ---
Post Anesthesia Note Post Anesthesia Note Patient seen: Inpatient Respiratory Status: adequate Cardiovascular Status: adequate Mental Status: baseline Pain: adequate Temp: baseline Anesthetic awareness: N/A Complications: none Follow care: none
[2025-04-14 15:55] LABS: Rapid Plasma Reagin (RPR) Non Reactive (Non Reactive)
[2025-04-14 16:08] VITALS: BP 121/81; PULSE 78; RESP 16; TEMP 36.7; O2SAT 98
--- NOTE | 2025-04-14 18:40 | PM.OBDSVD1 ---
DS: Providers Provider Date Seen: 04/14/25 Date of admission: 04/12/25 16:25 Primary care physician: Huong Sanabria MD Admitting Clinician: Sonia Roland MD Attending Physician on discharge: Hafsa Christianson CNM Date of Discharge: 04/14/25 DS: Diagnosis Discharge Diagnosis (1) care and examination of lactating mother: Status: Acute (2) Chronic hypertension complicating or reason for care during : Status: Acute (3) Preeclampsia: Status: Acute Exam Narrative: Exam Narrative: VSS, afebrile GENERAL APPEARANCE: ?normal affect, alert, no distress MOOD: ?appropriate HEENT: normocephalic, neck supple, full ROM CHEST: ?Symmetrical chest wall movement. ?Normal respiratory effort. ?Clear to auscultation HEART: ?regular rate and rhythm ABDOMEN: ?soft, non-tender. Uterine fundus is firm, at Umbilicus, Midline and is appropriate for the stage of recovery. ?Bowel sounds present. PERINEUM: ?mild edema of the perineum, there is a periurethral laceration that is healing well. EXTREMITIES: ?normal and no edema Const: Vital Signs, click to edit/add: Vital Signs - 24 hr 04/13/25 18:55 04/13/25 19:09 04/13/25 19:10 Temperature 98.2 F Pulse Rate 104 H 90 Pulse Rate [Pulse Oximeter] Respiratory Rate 16 Blood Pressure 127/72 139/81 Blood Pressure [Le ft Arm] Pulse Oximetry Oxygen Delivery Me thod 04/13/25 19:24 04/13/25 19:25 04/13/25 19:40 Temperature 98.0 F Pulse Rate 94 Pulse Rate [Pulse Oximeter] Respiratory Rate 16 16 Blood Pressure 137/80 Blood Pressure [Le ft Arm] Pulse Oximetry Oxygen Delivery Me thod 04/13/25 19:41 04/13/25 19:54 04/13/25 19:55 Temperature Pulse Rate 93 92 Pulse Rate [Pulse Oximeter] Respiratory Rate 16 Blood Pressure 137/90 H 148/89 H Blood Pressure [Le ft Arm] Pulse Oximetry Oxygen Delivery Me thod 04/13/25 20:10 04/13/25 20:12 04/13/25 20:12 Temperature 98.4 F Pulse Rate 85 89 Pulse Rate [Pulse Oximeter] Respiratory Rate 16 Blood Pressure 154/80 H 143/79 H Blood Pressure [Le ft Arm] Pulse Oximetry 100 Oxygen Delivery Me thod 04/13/25 20:25 04/13/25 20:25 04/13/25 20:40 Temperature Pulse Rate 85 88 Pulse Rate [Pulse Oximeter] Respiratory Rate 18 Blood Pressure 144/80 H 142/80 H Blood Pressure [Le ft Arm] Pulse Oximetry Oxygen Delivery Me thod 04/13/25 20:40 04/13/25 20:55 04/13/25 20:55 Temperature 98.2 F 98.5 F Pulse Rate 85 Pulse Rate [Pulse Oximeter] Respiratory Rate 18 18 Blood Pressure 140/74 H Blood Pressure [Le ft Arm] Pulse Oximetry 100 Oxygen Delivery Me thod 04/13/25 23:52 04/14/25 02:58 04/14/25 08:35 Temperature 98.5 F 98.4 F 97.5 F L Pulse Rate Pulse Rate [Pulse Oximeter] 94 84 88 Respiratory Rate 18 16 24 Blood Pressure Blood Pressure [Le ft Arm] 118/77 118/77 109/74 Pulse Oximetry 98 97 Oxygen Delivery Me thod Room Air Room Air Room Air 04/14/25 11:59 04/14/25 16:08 Temperature 98 F 98.1 F Pulse Rate Pulse Rate [Pulse Oximeter] 83 78 Respiratory Rate 20 16 Blood Pressure Blood Pressure [Le ft Arm] 119/78 121/81 Pulse Oximetry 97 98 Oxygen Delivery Me thod Room Air Room Air Documenting provider has reviewed patient's vital signs: yes OB - DS: Summary Hospital Course Hospital Course: Mary is a 34 y.o. who was admitted to [facility] for induction of labor due to chronic hypertension. ?She had an uncomplicated NVD.?The patient feels well. ?The pain is well controlled with current medications. ?She has no new complaints. ?She is breast feeding and reports things are going well.? the patient has done well.? Vitals have been stable since she was started on Nifedipine during this stay due to elevation of her blood pressures. ? She has remained afebrile.? Has a good appetite, is tolerating a general diet. ?She is voiding without difficulty.? She is passing gas and has not had a bowel movement.? She is ambulating and denies any dizziness.? Has Small amount of rubra lochia. ?She is undecided on her plan for prevention. Peripartum Data Infant delivery method: Vaginal Laceration description: Periurethral - 1st Degree complications: none Gender: Female Infant Discharge Plan: Home Status at Discharge Functional status at discharge: independent ambulation Overall status at discharge: patient is progressing back to baseline Time Spent with Patient Time attestation: Total time spent providing and/or coordinating discharge services: Time spent: Less than 30 minutes Discharge Plan Discharge Disposition: Home, Self-Care Date of Admission: 04/12/25 16:25 Attending Provider on Discharge: Hafsa Christianson Consulting Providers: Dana Santillan Primary Care Provider: Huong Sanabria Condition: Stable Anticipated Discharge Date/Time: 04/14/25 19:00 Discharge Medications: New acetaminophen 500 mg Tablet 1,000 mg PO Q6H PRNQty: 0 0RF docusate sodium 100 mg Capsule 100 mg PO DAILY Qty: 60 1RF nifedipine 30 mg Tablet Extended Release 30 mg PO DAILY Qty: 30 0RF ibuprofen 600 mg Tablet 600 mg PO Q6H PRNQty: 60 0RF Continued Flintstones Multi-Vit Gummies 200 mcg tablet,chewable PO magnesium 200 mg tablet 360 mg PO QDAY famotidine [Pepcid] 20 mg tablet 20 mg PO QDAY One-A-Day -1 27 mg iron- 800 mcg-235 mg capsule PO fluticasone propionate 50 mcg/actuation spray,suspension 1 spray intranasal QDAY Rx Instructions: administer into each nostril Tylenol Extra Strength 500 mg powder in packet 500 mg PO Q6H PRN Unisom (doxylamine) 25 mg tablet 25 mg PO QHS PRN aspirin [Adult Aspirin Regimen] 81 mg tablet,delayed release (DR/EC) 81 mg PO QDAY promethazine 25 mg tablet 25 mg PO QID PRN (Reason: nausea and vomiting) Qty: 30 4RF Discharge Orders: Discharge Order (Routine); Ordered 04/14/25 Ordered By: Hafsa Christianson Patient Education: OB Over the Counter Medication Information, OB /Breast Feeding Additional Instructions: Discharge instructions were reviewed with the patient including signs and symptoms of infection and home going medications Nothing vaginally for 6 weeks: no tampons or intercourse Off Work or School for 6 weeks [facility] for a BP check?04/18/25 Call with BP greater than or equal to 150/100 2-week visit: discuss infant feeding concerns, review control options and screen for anxiety/depression. 6-week visit for an annual exam. consultation services are available to all mothers and babies for the first year after delivery.? To make an appointment, please call [phone]. Activity Level: Activity as Tolerated Discharge Diet: Regular Follow Up Appointments: [facility] [Provider Group] Forms: [employer] Info Instructions
[2025-04-14 21:06] VITALS: BP 129/80; PULSE 78; RESP 18; TEMP 36.8; O2SAT 98
[2025-04-14] MEDS: NIFEdipine ER 30 MG TAB PO (21:13)
[2025-04-15 00:29] VITALS: BP 129/80; PULSE 78; RESP 18; TEMP 36.8; O2SAT 98
[2025-04-15 00:38] VITALS: BP 133/90; PULSE 75; RESP 18
[2025-04-15 04:55] VITALS: BP 118/78; PULSE 78; RESP 18; O2SAT 98
[2025-04-15] MEDS: IBUPROFEN 600 MG TABLET PO ×2 (05:00→12:29)
--- NOTE | 2025-04-15 07:29 | P.DS_ITS ---
DS: Providers Provider Date Seen: 04/15/25 Date of admission: 04/12/25 16:25 Primary care physician: Huong Sanabria MD Admitting Clinician: Sonia Roland MD Attending Physician on discharge: Sonia Roland MD Date of Discharge: 04/15/25 DS: Diagnosis Discharge Diagnosis (1) care and examination of lactating mother: Status: Acute (2) Preeclampsia: Status: Acute (3) Transaminitis: Status: Acute (4) Chronic hypertension complicating or reason for care during : Status: Acute (5) Obesity: Status: Acute Exam Narrative: Exam Narrative: GENERAL APPEARANCE:? normal affect, alert, no distress? MOOD:? appropriate? CHEST:? clear to auscultation and percussion? HEART:? regular rate and rhythm? ABDOMEN:? soft, non-tender the uterine fundus is U/2 and is appropriate for the stage of recovery.? PERINEUM:? mild edema of the perineum, there is a 1st degree laceration that is healing well.? EXTREMITIES:? normal and no edema? Const: Vital Signs, click to edit/add: Vital Signs - 24 hr 04/14/25 08:35 04/14/25 11:59 04/14/25 16:08 Temperature 97.5 F L 98 F 98.1 F Pulse Rate [Pulse Oximeter] 88 83 78 Respiratory Rate 24 20 16 Blood Pressure [Le ft Arm] 109/74 119/78 121/81 Pulse Oximetry 97 97 98 Oxygen Delivery Me thod Room Air Room Air Room Air 04/14/25 21:06 04/15/25 00:29 04/15/25 00:38 Temperature 98.3 F 98.3 F Pulse Rate [Pulse Oximeter] 78 78 75 Respiratory Rate 18 18 18 Blood Pressure [Le ft Arm] 129/80 129/80 133/90 H Pulse Oximetry 98 98 Oxygen Delivery Me thod Room Air Room Air Room Air 04/15/25 04:55 Temperature Pulse Rate [Pulse Oximeter] 78 Respiratory Rate 18 Blood Pressure [Le ft Arm] 118/78 Pulse Oximetry 98 Oxygen Delivery Me thod Room Air Documenting provider has reviewed patient's vital signs: yes OB - DS: Summary Hospital Course Hospital Course: The patient is a 34 year old G 2 P 2 at 38.1 weeks gestation that was admitted to the Center on 04/12/25 for IOL for chronic hypertension. She had an uncomplicated vaginal delivery. She delivered a viable female . She is breast feeding and denies concerns with how it is going at this time. the patient has done well. Her pain is well controlled with current medications.? She has no new complaints.? Urinary output is adequate and she is voiding without difficulty.? Has a good appetite, is tolerating a general diet, is passing flatus, and has not had a bowel movement.? Has small amount of rubra lochia.? She is ambulating well. Blood pressures have been stable on her current dose of nifedipine. She did complain of numbness/tingling in her right hand today. Encouraged good body mechanics with , elevation, and wrist braces. She is undecided on her plan for contraception. She was planning to discharge yesterday but baby stayed for blood sugar monitoring so she stayed and will discharge today. Peripartum Data Infant delivery method: Vaginal Laceration description: Periurethral - 1st Degree Episiotomy description: None complications: none [place] Gender: Female Discharge Plan: Home Status at Discharge Functional status at discharge: independent ambulation Overall status at discharge: patient is progressing back to baseline Time Spent with Patient Time attestation: Total time spent providing and/or coordinating discharge services: Discharge Plan Discharge Disposition: Home, Self-Care Date of Admission: 04/12/25 16:25 Attending Provider on Discharge: Donita Knapp Consulting Providers: Dana Santillan Primary Care Provider: Huong Sanabria Condition: Stable Anticipated Discharge Date/Time: 04/14/25 19:00 Discharge Medications: New acetaminophen 500 mg Tablet 1,000 mg PO Q6H PRNQty: 0 0RF docusate sodium 100 mg Capsule 100 mg PO DAILY Qty: 60 1RF nifedipine 30 mg Tablet Extended Release 30 mg PO DAILY Qty: 30 0RF ibuprofen 600 mg Tablet 600 mg PO Q6H PRNQty: 60 0RF Continued Flintstones Multi-Vit Gummies 200 mcg tablet,chewable PO magnesium 200 mg tablet 360 mg PO QDAY famotidine [Pepcid] 20 mg tablet 20 mg PO QDAY One-A-Day -1 27 mg iron- 800 mcg-235 mg capsule PO fluticasone propionate 50 mcg/actuation spray,suspension 1 spray intranasal QDAY Rx Instructions: administer into each nostril Tylenol Extra Strength 500 mg powder in packet 500 mg PO Q6H PRN Unisom (doxylamine) 25 mg tablet 25 mg PO QHS PRN aspirin [Adult Aspirin Regimen] 81 mg tablet,delayed release (DR/EC) 81 mg PO QDAY promethazine 25 mg tablet 25 mg PO QID PRN (Reason: nausea and vomiting) Qty: 30 4RF Discharge Orders: Discharge Order (Routine); Ordered 04/15/25 Ordered By: Donita Knapp Patient Education: OB Over the Counter Medication Information, OB /Breast Feeding Additional Instructions: Discharge instructions were reviewed with the patient including signs and symptoms of infection and home going medication [facility] for a BP check?04/18/25 Call with BP greater than or equal to 150/100 2-week visit: discuss infant feeding concerns, review control options and screen for anxiety/depression. 6-week visit for an annual exam. consultation services are available to all mothers and babies for the first year after delivery.? To make an appointment, please call [phone]. Activity Level: Activity as Tolerated Discharge Diet: Regular Follow Up Appointments: [facility] [Provider Group] Forms: [employer] Info Instructions
[2025-04-15 08:30] VITALS: BP 111/75; PULSE 78; RESP 16; TEMP 36.9; O2SAT 98
[2025-04-15] MEDS: DOCUSATE SODIUM 100 MG CAPSULE PO (10:12)
[2025-04-15] MEDS: ACETAMINOPHEN 500 MG TABLET 1000 MG PO (10:12)
[2025-04-15 11:04] LABS: Hemoglobin* 12.3 gm/dL (12.0-16.0); Mean Corpuscular HGB Conc 34 gm/dL (32-36); Mean Corpuscular Hemoglobin 33 pg (26-34); Mean Corpuscular Volume 96 fL (80-100); Platelet Count* 335 K/uL (140-440); Red Blood Count 3.75 m/uL (4.00-5.20); Slide Review Reflex No
[2025-04-15 11:19] LABS: Alanine Aminotransferase* 43 U/L (4-35); Aspartate Amino Transferase* 47 U/L (12-35); Blood Urea Nitrogen* 7 mg/dL (5-24); Creatinine* 0.6 mg/dL (0.5-1.5); Est. Creatinine Clearance* 132.02; Estimated Glomerular Filt Rate 120 ml/min
== END 2025-04-15 13:00 | disposition home or self-care (01) | DRG 807 ==
PROVIDERS: Obstetrics & Gynecology; Admitting Provider Obstetrics & Gynecology; PCP Family Medicine; Visit Provider Obstetrics & Gynecology
DX: O11.4 Pre-existing hypertension with pre-eclampsia, complicating childbirth (principal); Z37.0 Single live birth; O10.92 Unspecified pre-existing hypertension complicating childbirth; O76 Abnormality in fetal heart rate and rhythm complicating labor and delivery; O71.82 Other specified trauma to perineum and vulva; O99.824 Streptococcus B carrier state complicating childbirth; O36.63X0 Maternal care for excessive fetal growth, third trimester, not applicable or unspecified; O70.0 First degree perineal laceration during delivery; Z3A.38 38 weeks gestation of pregnancy
CPT/HCPCS: 01967; 36415; 59200; 82565; 84450; 84460; 84520; 85018; 85025; 85027; 86592; 86850; 86900; 86901; 88307; A9270; C1726; J0290; J2270; J2795; J3010; J7120

== ENCOUNTER 2025-04-19 16:36 | Outpatient (CLI) | payer OTHER, SELFPAY ==
--- NOTE | 2025-04-19 16:45 | CRLHL7_ITS ---
For Patients: As a result of the Century Cures Act, medical imaging exams and procedure reports are released immediately into your electronic medical record. You may view this report before your referring provider. If you have questions, please contact your health care provider. INDICATION: Right leg swelling post . COMPARISON: None. TECHNIQUE: A compression venous ultrasound exam was performed of the right lower extremity using chang-scale imaging, color Doppler, and spectral Doppler analysis. FINDINGS: Sonographic imaging of the right lower extremity demonstrates normal compressibility and color Doppler venous blood flow within the common femoral, femoral, deep femoral, and proximal greater saphenous veins. At a lower level the popliteal, peroneal, and posterior tibial veins also show normal compressibility and color Doppler venous blood flow. Limited imaging of the contralateral groin demonstrates a normal spectral waveform and color Doppler venous blood flow within the left common femoral vein. IMPRESSION: Negative for acute DVT in the right lower extremity. Dictated by Radha Gomez MD @ 04/19/2025 6:03:23 PM (Electronically Signed)
== END 2025-04-19 16:37 | disposition home or self-care (01) ==
LOC: US 16:36
PROVIDERS: PCP Family Medicine; Visit Provider Physician Assistant
DX: O90.89 Other complications of the puerperium, not elsewhere classified (principal); R22.41 Localized swelling, mass and lump, right lower limb; Z39.1 Encounter for care and examination of lactating mother
CPT/HCPCS: 82565; 84450; 84460; 93971

== ENCOUNTER 2025-04-26 13:28 | Outpatient (CLI) | payer OTHER, SELFPAY | END 2025-04-26 13:29 | disposition home or self-care (01) | LOC: NFLDREF 04-27 03:59 | PROVIDERS: PCP Family Medicine; Referring Provider Family Medicine; Visit Provider Physician Assistant | DX: O14.95 Unspecified pre-eclampsia, complicating the puerperium (principal); R74.01 Elevation of levels of liver transaminase levels | CPT/HCPCS: 84450; 84460 ==

== ENCOUNTER 2025-09-05 06:38 | Outpatient (CLI) | payer OTHER, SELFPAY | END 2025-09-05 06:39 | disposition home or self-care (01) | LOC: NFLDREF 09-07 09:04 | PROVIDERS: PCP Family Medicine; Referring Provider Family Medicine; Visit Provider Internal Medicine Nephrology | DX: O12.10 Gestational proteinuria, unspecified trimester (principal) | CPT/HCPCS: 80069; 82043; 82570; 84156 ==